=== PATIENT | male | born 1990 | race Caucasian/White ===

== ENCOUNTER 2018-03-22 11:00 | Emergency (ER) | payer OTHER ==
[2018-03-22 11:06] VITALS: RESP 22; TEMP 97; O2SAT 98; BMI 36.0
[2018-03-22] MEDS ORDERED: DiphenhydrAMINE 50 mg/ml Inj IM STA (11:35)
--- NOTE | 2018-03-22 11:41 | ED PDOC ---
HPI: General Adult Time Seen by Provider: 03/22/18 11:39 Chief Complaint (Nursing): Abnormal Skin Integrity Chief Complaint (Provider): rash/finger swelling History Per: Patient (27 y/o male here with generalized rash noted abdomen/ right upper extemity and swelling in lip noted noted. Denies any new foods. Admits [place] on [place] in [place]. Notes additional finger swelling index right hand. TETANUS UP TO DATE) Past Medical History Reviewed: Historical Data, Nursing Documentation, Vital Signs Vital Signs: Last Vital Signs Temp 97 F L 03/22/18 11:05 Pulse 71 03/22/18 12:27 Resp 22 03/22/18 11:05 BP 137/92 H 03/22/18 12:27 Pulse Ox 98 03/22/18 11:41 - Family History Family History: States: No Known Family Hx - Home Medications Home Medications: Ambulatory Orders Medication Instructions Recorded Cephalexin [Keflex] 500 mg PO QID #28 capsule 03/22/18 DiphenhydrAMINE [Benadryl] 50 mg PO Q6 PRN #24 cap 03/22/18 Prednisone [Deltasone] 2 tab PO DAILY #10 tablet 03/22/18 - Allergies Allergies/Adverse Reactions: Allergies Allergy/AdvReac Type Severity Reaction Status Date / Time No Known Allergies Allergy Verified 03/22/18 11:23 Review of Systems ROS Statement: Except As Marked, All Systems Reviewed And Found Negative Physical Exam - Reviewed Nursing Documentation Reviewed: Yes Vital Signs Reviewed: Yes - Physical Exam Appears: Positive for: Well, Non-toxic, No Acute Distress Head Exam: Positive for: ATRAUMATIC, NORMAL INSPECTION, NORMOCEPHALIC Skin: Positive for: Normal Color, Warm, Rash (urticaria) Eye Exam: Positive for: EOMI, Normal appearance, PERRL ENT: Positive for: Normal ENT Inspection Neck: Positive for: Normal, Painless ROM Cardiovascular/Chest: Positive for: Regular Rate, Rhythm Respiratory: Positive for: CNT, Normal Breath Sounds Gastrointestinal/Abdominal: Positive for: Normal Exam, Soft Back: Positive for: Normal Inspection Extremity: Positive for: Normal ROM, Swelling (paronychial abscess distal index finger right hand.) Neurologic/Psych: Positive for: Alert, Oriented - ECG O2 Sat by Pulse Oximetry: 98 - Progress ED Course And Treament: benadryl 50 mg IM x 1 dose Verbal consent prior to procedure Betadiene prep. small incision made with minimal prululent discharge. Noted with vasovagal near syncope subsequently Naproxent 500mg x 1 dose Disposition - Clinical Impression Clinical Impression: Paronychia, Rash and nonspecific skin eruption - Patient ED Disposition Is Patient to be Admitted: No - Disposition Disposition: Routine/Home Disposition Time: 12:46 Condition: FAIR Additional Instructions: RETURN IN 2 DAYS FOR RE-EVALUATION Prescriptions: Cephalexin [Keflex] 500 mg PO QID #28 capsule DiphenhydrAMINE [Benadryl] 50 mg PO Q6 PRN #24 cap PRN Reason: Rash Prednisone [Deltasone] 2 tab PO DAILY #10 tablet Instructions: Skin Rash (DC), Paronychia
[2018-03-22] MEDS ORDERED: DiphenhydrAMINE 50 mg/ml Inj ONE (11:50)
[2018-03-22] MEDS ORDERED: Povidone Iodine Oint 10% Foilpak UD ONE (11:58)
[2018-03-22 12:27] VITALS: BP 137/92; PULSE 71
[2018-03-22] MEDS ORDERED: Naproxen 500 MG TAB PO STA (12:42)
== END 2018-03-22 13:30 | disposition home or self-care (01) ==
LOC: H.ER 11:00
DX: L03.011 Cellulitis of right finger (principal); R21 Rash and other nonspecific skin eruption
CPT/HCPCS: 96372; 99283; J1200